=== PATIENT | male | born 1980 | race Caucasian/White ===

== ENCOUNTER → 2017-12-31 14:43 | Outpatient (CLI) | payer OTHER, SELFPAY ==
--- NOTE | 2017-12-31 14:44 | CT_ITS ---
STUDY: CT CHEST WITHOUT CONTRAST REASON FOR EXAM: Male, 37 years old. Mass follow-up RADIATION DOSAGE (If Supplied By Facility): CTDIvol = ( 10.07 ) mGy, DLP = ( 430.16 ) mGycm TECHNIQUE: Transaxial imaging was performed without the administration of intravenous contrast material. Individualized dose optimization techniques were used for this CT. COMPARISON: 12/31/2016 FINDINGS: Lungs are adequately inflated. Again noted is a small area of scarring in the medial segment of the left lower lobe. No suspicious findings. Lungs are otherwise clear. There is no demonstrated pleural abnormality. Normal heart and pericardium. Normal mediastinum. Normal hilar regions. Normal unenhanced pulmonary arteries. Normal aorta arch and descending thoracic aorta. Normal osseous structures. There is no demonstrated abnormality of the visualized upper abdomen. CT/Chest without Contrast IMPRESSION: Stable small area of scarring in the left lower lobe. No evidence of mass. Lungs are otherwise clear. Electronically Signed: Segun Lemons DO at 10:24 EDT Tel , Service support ,
== END ==
PROVIDERS: Family Provider Physician Assistant; PCP Physician Assistant; Visit Provider Internal Medicine Critical Care Medicine
DX: R91.8 Other nonspecific abnormal finding of lung field (principal)
CPT/HCPCS: 71250